=== PATIENT | female | born 1995 | race African-American/Black ===

== ENCOUNTER → 2018-12-19 17:28 | Emergency (ER) | payer OTHER ==
[~2018-12-19 17:28] MED LIST: Benzonatate CAP* 100 MG PO ONE; Lidocaine 2% VISCOUS* 15 ML UDC PO ONE
[2018-12-19 18:38] LABS: Rapid Strep Molecular Negative (Negative)
[2018-12-19 18:45] LABS: Influenza A Molecular NEGATIVE (Negative); Influenza B Molecular NEGATIVE (Negative)
--- NOTE | 2018-12-19 19:06 | ED ---
Throat Pain/Nasal Congestion - HPI Summary HPI Summary: Patient complains of sore throat, cough, body aches starting Tuesday. Denies fever, nasal congestion, headache, neck stiffness, CP, SOB, N/V/D, abdominal pain, change in urine, change in BM, vaginal symptoms. Medical history is none. No antipyretics today. - History of Current Complaint Chief Complaint: EDThroatPain Time Seen by Provider: 12/19/18 18:06 Hx Obtained From: Patient Onset/Duration: Gradual Onset, Lasting Days Severity: Moderate Associated Signs And Symptoms: Positive: Negative Cough: Productive - Allergies/Home Medications Allergies/Adverse Reactions: Allergies Allergy/AdvReac Type Severity Reaction Status Date / Time No Known Allergies Allergy Verified 12/19/18 17:33 PMH/Surg Hx/FS Hx/Imm Hx Endocrine/Hematology History: Denies: Hx Anticoagulant Therapy Cardiovascular History: Denies: Hx Pacemaker/ICD History: Denies: Hx Dialysis Sensory History: Denies: Hx Eye Prosthesis Opthamlomology History: Denies: Hx Legally Blind EENT History: Denies: Hx Deafness Neurological History: Denies: Hx Dementia Psychiatric History: Denies: Hx Autism Infectious Disease History: No Infectious Disease History: Denies: Traveled Outside the [place] in Last 30 Days - Social History Alcohol Use: None Substance Use Type: Reports: None Smoking Status (MU): Never Smoked Tobacco Review of Systems Constitutional: Negative Eyes: Negative Positive: Sore Throat Cardiovascular: Negative Positive: Cough Gastrointestinal: Negative Genitourinary: Negative Positive: Myalgia Skin: Negative Neurological: Negative Psychological: Normal All Other Systems Reviewed And Are Negative: Yes Physical Exam Triage Information Reviewed: Yes Vital Signs On Initial Exam: Initial Vitals Temp Pulse Resp BP Pulse Ox 98.3 F 99 18 137/84 95 12/19/18 17:30 12/19/18 17:30 12/19/18 17:30 12/19/18 17:30 12/19/18 17:30 Vital Signs Reviewed: Yes Appearance: Positive: Well-Appearing Skin: Positive: Warm Head/Face: Positive: Normal Head/Face Inspection Eyes: Positive: Normal ENT: Positive: Pharyngeal erythema, TMs normal, Uvula midline. Negative: Tonsillar swelling, Tonsillar exudate, Trismus, Muffled voice, Hoarse voice Neck: Positive: Supple Respiratory/Lung Sounds: Positive: Clear to Auscultation Cardiovascular: Positive: Normal Abdomen Description: Positive: Nontender Musculoskeletal: Positive: Normal Neurological: Positive: Normal Psychiatric: Positive: Normal AVPU Assessment: Alert - Jayshree Coma Scale Best Eye Response: 4 - Spontaneous Best Motor Response: 6 - Obeys Commands Best Verbal Response: 5 - Oriented Coma Scale Total: 15 Diagnostics - Vital Signs Vital Signs Temp Pulse Resp BP Pulse Ox 12/19/18 17:30 98.3 F 99 18 137/84 95 - Laboratory Lab Results: Lab Results 12/19/18 12/19/18 Range/Units 18:08 18:08 Influenza A (Rapid) Negative (Negative) Influenza B (Rapid) Negative (Negative) Group A Strep Rapid Negative (Negative) Lab Statement: Any lab studies that have been ordered have been reviewed, and results considered in the medical decision making process. EENT Course/Dx - Course Course Of Treatment: Patient complains of sore throat, cough, body aches starting Tuesday. Denies fever, nasal congestion, headache, neck stiffness, CP, SOB, N/V/D, abdominal pain, change in urine, change in BM, vaginal symptoms. Medical history is none. No antipyretics today. Physical exam unremarkable. Vital signs within normal limits. Strep negative. Evans negative. Flu negative. Diagnosis viral syndrome. Rx for viscous lidocaine. Advised patient Tylenol and ibuprofen for body aches. - Diagnoses Provider Diagnoses: Viral syndrome Discharge - Sign-Out/Discharge Documenting (check all that apply): Patient Departure Patient Received Moderate/Deep Sedation with Procedure: No - Discharge Plan Condition: Stable Disposition: HOME Prescriptions: Benzonatate CAP* [Tessalon 100 MG CAP*] 200 mg PO TID 6 Days #40 cap Lidocaine 2% VISCOUS* [Xylocaine 2% Viscous*] 15 ml SWISH SPIT Q6H PRN #1 btl PRN Reason: Pain Patient Education Materials: Viral Syndrome (ED) Referrals: No Primary Care Phys,NOPCP [Primary Care Provider] - Additional Instructions: Use lidocaine for sore throat pain. Alternate ibuprofen 600 mg with Tylenol 650 mg every 3 hours for body aches. Drink plenty of fluids. Return to the ED for any new or worsening symptoms. - Billing Disposition and Condition Condition: STABLE Disposition: Home
[2018-12-19 19:29] VITALS: BP 133/71
== END | disposition home or self-care (01) ==
LOC: ED 17:28
DX: B34.9 Viral infection, unspecified (principal)
CPT/HCPCS: 36415; 86308; 87651; 99282; A9270-GY